=== PATIENT | female | born 1955 | race Caucasian/White ===

== ENCOUNTER 2022-02-15 21:44 | Inpatient (IN) | payer MEDICARE, BC ==
[~2022-02-15] VITALS: Ht 154.9 cm; Wt 69.9 kg
--- NOTE | 2022-02-15 22:10 | NUR ---
DR. COBB AT BEDSIDE.
--- NOTE | 2022-02-15 22:21 | NUR ---
LAB AND XRAY AT BEDSIDE.
[2022-02-15 22:47] LABS: HEMATOCRIT 37.5 % (31.2-41.9); MEAN CORPUSCULAR HEMOGLOBIN 31.7 uug (24.7-32.8); MEAN CORPUSCULAR VOLUME 92.1 fL (75.5-95.3); PLATELET COUNT (AUTO) 202 K/uL (179-408)
[2022-02-15 22:53] LABS: CARBON DIOXIDE 25 mmol/L (21-32); CHLORIDE 104 mmol/L (98-107); CREATININE 0.8 mg/dL (0.6-1.3); GLUCOSE 129 mg/dL (74-106); POTASSIUM 3.8 mmol/L (3.5-5.1); UREA NITROGEN, BLOOD 10 mg/dL (7-18)
[2022-02-15 23:02] LABS: ALANINE AMINOTRANSFERASE 35 U/L (14-59); ALKALINE PHOSPHATASE 71 U/L (50-136); ASPARTATE AMINOTRANSFERASE 22 U/L (15-37); BILIRUBIN,DIRECT 0.1 mg/dL (0.0-0.2); BILIRUBIN,TOTAL 0.7 mg/dL (0.2-1.0); TOTAL PROTEIN, SERUM 7.2 g/dL (6.4-8.2)
[2022-02-15 23:17] LABS: *BILIRUBIN,URIN NEGATIVE (NEGATIVE); *BLOOD, URINE NEGATIVE (NEGATIVE); *CLARITY,URINE CLEAR (CLEAR); *COLOR,URINE YELLOW (YELLOW); *KETONES,URINE NEGATIVE (NEGATIVE); *UROBILINOGEN,URINE 0.2 E.U./dl (NORMAL); LEUKOCYTE ESTERASE ,URINE NEGATIVE (NEGATIVE); NITRITE, URINE NEGATIVE (NEGATIVE); PH,URINE 6.5 (5.0-8.0); UGLUCOSE NEGATIVE (NEGATIVE)
[2022-02-16] VITALS (7 sets, daily range): BP systolic 107–159; BP diastolic 53–76
[2022-02-16] MEDS ORDERED: ASPIRIN 81 MG TAB.CHEW PO ONE (01:00)
--- NOTE | 2022-02-16 01:02 | NUR ---
CALLED [facility], AGUILA VELASQUEZ PAGED FOR PANEL CALL.
--- NOTE | 2022-02-16 01:07 | NUR ---
PT HAS REFUSED IV INSERTION AT THIS MOMENT, PT IS A/O X4, DESPITE EXPLAINING RISK, BENEFITS AND FACILITY PROTOCOLS.
[2022-02-16] MEDS ORDERED: HYDR-894 PO (01:13)
[2022-02-16] MEDS ORDERED: AMLO-212 PO (01:13)
[2022-02-16] MEDS ORDERED: ROSU10TA2 PO (01:13)
[2022-02-16] MEDS ORDERED: IRBE300T19 PO (01:13)
[2022-02-16] MEDS ORDERED: ASPI81TA31 PO (01:13)
--- NOTE | 2022-02-16 01:24 | NUR ---
GAVE REPORT TO A[place].
--- NOTE | 2022-02-16 01:25 | NUR ---
Received report from Mimi TREJO
[2022-02-16] MEDS ORDERED: REMEDY ESSENTIAL ZINC PASTE 113 GM TP PRN (01:30)
[2022-02-16] MEDS ORDERED: TEMAZEPAM 15 MG CAPSULE PO PRN (01:30)
[2022-02-16] MEDS ORDERED: ONDANSETRON 4 MG/2 ML VIAL IV PRN (01:30)
[2022-02-16] MEDS ORDERED: HYDROCODONE/APAP 5-325MG TABLET PO PRN (01:30)
[2022-02-16] MEDS ORDERED: ENOXAPARIN SODIUM 40 MG/0.4 ML DISP.SYRIN SQ SCH (01:30)
[2022-02-16] MEDS ORDERED: ACETAMINOPHEN 325 MG TABLET PO PRN (01:30)
[2022-02-16] MEDS ORDERED: MAGNESIUM HYDROXIDE 30 ML LIQUID UDC PO PRN (01:30)
[2022-02-16] MEDS ORDERED: IV NS 1000 ML 1,000 ML IV PRN (01:30)
--- NOTE | 2022-02-16 02:00 | NUR ---
Pt. admitted to tele , under care of Sukh Casillas [place] List completed Pt admitted in stanble condition, denied any pain/discomfort upon discharge. VSS.
--- NOTE | 2022-02-16 05:29 | NUR ---
Admitted to Tele, SR on monitor. Denies chest pain, SOB or discomfort. No N/V/D. IV started on R FA 20g, running ordered fluids. Pt is alert and able to make needs known. Safety maintained throughout the shift. Will endorse to day shift.
[2022-02-16] MEDS ORDERED: PANTOPRAZOLE SODIUM 40 MG TABLET.DR PO SCH (07:00)
--- NOTE | 2022-02-16 08:00 | NUR ---
AWAKE ALERT AND VERBALLY RESPONSIVE NO SIGNS OF PAIN OR DISTRESS. SR ON MONITOR
[2022-02-16] MEDS ORDERED: ASPIRIN 81 MG TAB.CHEW PO SCH ×2 (09:00→13:45)
--- NOTE | 2022-02-16 10:00 | NUR ---
SEEN BY DR ROWLEY ADVISE TO TAKE ORTHOSTATIC BP AND NOTED
--- NOTE | 2022-02-16 12:00 | NUR ---
STARTED WITH PHYSICAL THERAPIST SEE NOTES
--- NOTE | 2022-02-16 12:57 | NUR ---
NO ACUTE CHANGE FROM AM ASSESSMENT
[2022-02-16] MEDS ORDERED: HYDR25TA4 PO (13:37)
[2022-02-16] MEDS ORDERED: hydrALAZINE HCL 25 MG TABLET PO SCH (13:45)
[2022-02-16] MEDS ORDERED: VALSARTAN 160 MG TABLET PO SCH (14:00)
[2022-02-16] MEDS ORDERED: HYDROCHLOROTHIAZIDE 25 MG TABLET PO SCH (14:00)
[2022-02-16] MEDS ORDERED: AMLODIPINE 5 MG TABLET PO SCH (14:00)
--- NOTE | 2022-02-16 15:24 | NUR ---
DISCHARGE MEDICATION AND FOLLOW-UP INSTRUCTION GIVEN TO PATIENT
[2022-02-16] MEDS ORDERED: ATORVASTATIN 20 MG TABLET PO SCH (21:00)
== END 2022-02-16 15:25 | disposition home or self-care (01) | DRG 74 ==
LOC: ER 21:46 → TELE3 02-16 01:42
PROVIDERS: ADMIT Nurse Practitioner Acute Care; ATTEND Nurse Practitioner Acute Care
DX: G90.8 Other disorders of autonomic nervous system (principal); R55 Syncope and collapse; I10 Essential (primary) hypertension; Z82.49 Family history of ischemic heart disease and other diseases of the circulatory system; Z20.822 Contact with and (suspected) exposure to COVID-19; D72.819 Decreased white blood cell count, unspecified; E86.0 Dehydration; Z72.89 Other problems related to lifestyle
CPT/HCPCS: 36415; 70450; 71045; 84484; 85025; 93005; 93307; 97161; G0378; J7040